=== PATIENT | female | born 2005 | race Two or more races ===

== ENCOUNTER 2024-01-07 14:43 | Emergency (ER) | payer SELFPAY ==
[~2024-01-07] VITALS: Ht 147.3 cm; Wt 52.6 kg
[2024-01-07 14:50] VITALS: TEMP 98.3
[2024-01-07 15:52] LABS: PREGNANCY TEST URINE QUAL NEGATIVE (NEGATIVE)
[2024-01-07 16:29] VITALS: BP 120/85; O2SAT 99
== END 2024-01-07 16:30 | disposition home or self-care (01) ==
LOC: ER 14:46
DX: S49.91XA Unspecified injury of right shoulder and upper arm, initial encounter (principal); S93.402A Sprain of unspecified ligament of left ankle, initial encounter; G40.909 Epilepsy, unspecified, not intractable, without status epilepticus; W19.XXXA Unspecified fall, initial encounter; Y93.01 Activity, walking, marching and hiking; Y92.89 Other specified places as the place of occurrence of the external cause; Y99.8 Other external cause status
CPT/HCPCS: 36415; 76856-TC; 84702-TC; 84703-TC

== ENCOUNTER 2024-01-10 19:49 | Emergency (ER) | payer SELFPAY ==
[~2024-01-10] VITALS: Ht 157.5 cm; Wt 63.5 kg
[2024-01-10 20:16] VITALS: TEMP 98.1
[2024-01-10 20:20] VITALS: BP 118/67; O2SAT 98
[2024-01-10] MEDS ORDERED: LAMO100T2 PO (20:28)
[2024-01-10] MEDS ORDERED: LamoTRIgine 100 MG TABLET ONE (20:32)
[2024-01-10] MEDS: LamoTRIgine 100 MG TABLET PO SCH (20:40)
[2024-01-10] MEDS ORDERED: ONDANSETRON 4 MG TAB.RAPDIS ONE (20:43)
[2024-01-10] MEDS ORDERED: ONDANSETRON 4 MG TAB.RAPDIS SL ONE (21:00)
== END 2024-01-10 20:43 | disposition home or self-care (01) ==
LOC: ER 19:56
DX: G40.909 Epilepsy, unspecified, not intractable, without status epilepticus (principal)
CPT/HCPCS: Q0162